=== PATIENT | female | born 1940 | race Caucasian/White ===

== ENCOUNTER 2016-12-09 09:44 | Day surgery (SDC) | payer MEDICARE, OTHER ==
[~2016-12-09] VITALS: Ht 154.9 cm; Wt 52.2 kg
== END 2016-12-09 13:43 | disposition short-term general hospital (02) ==
LOC: SURGOP 09:44
PROC: 08RK3JZ Replacement of Left Lens with Synthetic Substitute, Percutaneous Approach (ICD-10-PCS; principal; 2016-12-09)
DX: Z96.1 Presence of intraocular lens (principal); H26.9 Unspecified cataract; Z86.2 Personal history of diseases of the blood and blood-forming organs and certain disorders involving the immune mechanism; M19.90 Unspecified osteoarthritis, unspecified site; E80.6 Other disorders of bilirubin metabolism; E78.5 Hyperlipidemia, unspecified; G47.00 Insomnia, unspecified; G25.81 Restless legs syndrome; M06.9 Rheumatoid arthritis, unspecified; Z79.899 Other long term (current) drug therapy; Z90.49 Acquired absence of other specified parts of digestive tract; Z98.890 Other specified postprocedural states; Z87.891 Personal history of nicotine dependence; Z80.1 Family history of malignant neoplasm of trachea, bronchus and lung; Z80.0 Family history of malignant neoplasm of digestive organs; Z83.3 Family history of diabetes mellitus
CPT/HCPCS: J0171; J3370; J3473; J3490; V2630

== ENCOUNTER 2017-01-13 10:06 | Day surgery (SDC) | payer MEDICARE, OTHER | END 2017-01-13 13:28 | disposition short-term general hospital (02) | LOC: SURGOP 10:06 | PROC: 08RJ3JZ Replacement of Right Lens with Synthetic Substitute, Percutaneous Approach (ICD-10-PCS; principal; 2017-01-13) | DX: H26.9 Unspecified cataract (principal); E78.5 Hyperlipidemia, unspecified; M19.90 Unspecified osteoarthritis, unspecified site; Z86.2 Personal history of diseases of the blood and blood-forming organs and certain disorders involving the immune mechanism; Z96.1 Presence of intraocular lens; Z90.49 Acquired absence of other specified parts of digestive tract; Z79.899 Other long term (current) drug therapy; Z87.891 Personal history of nicotine dependence | CPT/HCPCS: J0171; J3473; J3490; V2630 ==

== ENCOUNTER → 2017-02-27 | Outpatient (CLI) | payer MEDICARE, OTHER | END | disposition short-term general hospital (02) | LOC: CLRHEU 09:56 | DX: M06.9 Rheumatoid arthritis, unspecified (principal); M81.0 Age-related osteoporosis without current pathological fracture ==